=== PATIENT | male | born 1985 | race Two or more races ===

== ENCOUNTER 2020-04-09 13:14 | Emergency (ER) | payer OTHER ==
[2020-04-09 14:31] VITALS: BP 133/83
--- NOTE | 2020-04-09 14:39 | ED Physician Documentation ---
PD HPI UPPER EXT INJURY - Stated complaint Stated Complaint: RT HAND PX - Chief complaint Chief Complaint: Ext Problem - History obtained from History obtained from: Patient - History of Present Illness Location: Right, Finger Type of injury: Fall Where injury occurred: Work - Additonal information Additional information: 34-year-old male presents to the emergency department for reevaluation of right thumb pain. Seen here 12 days ago after a fall. Patient describes an injury that sounds a lot like a thumb dislocation. X-ray was negative and he was placed in a thumb spica splint. He has been in light duty since However the thumb continues to hurt. 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 Employer is requesting reevaluation and return to full duty if possible. Pain is worse at the end of the day and worse with [place] heavy lifting and pushing Review of Systems Constitutional: denies: Fever, Chills Cardiac: denies: Chest pain / pressure, Palpitations Respiratory: denies: Dyspnea, Cough GI: denies: Abdominal Swelling Musculoskeletal: reports: Joint pain Endocrine: denies: Polydypsia, Polyuria PD PAST MEDICAL HISTORY - Past Medical History Cardiovascular: None Respiratory: None Neuro: None Endocrine/Autoimmune: None GI: None : None HEENT: None Psych: None Musculoskeletal: None Derm: None - Past Surgical History Past Surgical History: No - Present Medications Home Medications: Ambulatory Orders Medication Instructions Recorded Confirmed Ibuprofen [Motrin] 600 mg PO Q6H PRN #30 tab 04/09/20 - Allergies Allergies/Adverse Reactions: Allergies Allergy/AdvReac Type Severity Reaction Status Date / Time No Known Drug Allergies Allergy Verified 04/01/20 08:22 - Social History Does the pt smoke?: No Smoking Status: Never smoker Does the pt drink ETOH?: Yes Does the pt have substance abuse?: Yes - Immunizations Immunizations are current?: Yes - POLST Patient has POLST: No PD ED PE NORMAL - General General: Alert and oriented X 3, No acute distress - Cardiac Cardiac: RRR, No murmur - Abdomen Abdomen: Normal bowel sounds, Soft - Extremities Extremities: No deformity, Other (Tenderness at base of right thumb over thenar eminence. Normal flexion and extension of thumb in all planes though painful. No swelling noted.). No: No tenderness to palpate - Neuro Neuro: Alert and oriented X 3 Results - Vitals Vitals: Vital Signs - 24 hr 04/09/20 04/09/20 13:49 14:31 Temperature 36.8 C Heart Rate 86 75 Respiratory 16 18 Rate Blood Pressure 104/77 133/83 H O2 Saturation 99 100 Oxygen O2 Source Room air PD MEDICAL DECISION MAKING - ED course Complexity details: reviewed results, d/w patient ED course: 34-year-old male presents to the ER with persistent right thumb pain following a fall at work nearly 2 weeks ago. It sounds like he had a dislocation that he set just after the fall and x-ray was ultimately negative however his thumb pain continues. He is in a thumb spica splint - Pain is seemingly worse at the end of the day and worse with any movement. Cannot return to full duty at this time will recommend patient to follow-up with orthopedics at this point for longer-term evaluation and recommend continued light duty at work with the use of the splint Departure - Departure Disposition: 01 Home, Self Care Clinical Impression: Other sprain of right thumb, sequela Condition: Stable Record reviewed to determine appropriate education?: Yes Instructions: ED Sprain Wrist Follow-Up: [facility] [Provider Group] Prescriptions: Ibuprofen [Motrin] 600 mg PO Q6H PRN #30 tab PRN Reason: Pain Comments: Ajay let us have you call the orthopedics department to follow-up on this thumb sprain. It is important that you avoid any heavy lifting pushing or pulling greater than 5 pounds until this pain improves. Wear your splint at all times. I have also prescribed some ibuprofen that I think will help in the long-term with the pain.
== END 2020-04-09 14:56 | disposition home or self-care (01) ==
LOC: ED 13:14
DX: S63.601A Unspecified sprain of right thumb, initial encounter (principal); W19.XXXA Unspecified fall, initial encounter; Y99.0 Civilian activity done for income or pay
CPT/HCPCS: 99282